=== PATIENT | male | born 1955 | race Caucasian/White ===

== ENCOUNTER 2019-07-25 03:38 | Observation (INO) ==
[2019-07-25 04:10] LABS: Basophils # 0.1 K/mm3 (0-0.2); Basophils % 0.3 % (0.1-2.0); Eosinophils # 0.2 K/mm3 (0.0-0.4); Eosinophils % 1.3 % (0.1-12.0); Hematocrit 44.2 % (42.0-52.0); Hemoglobin 13.8 g/dL (14.1-18.0); Lymphocytes # 3.6 K/mm3 (0.7-4.5); Lymphocytes % 20.1 % (10-50); Mean Corpuscular HGB Conc 31.2 g/dL (31.8-35.4); Mean Platelet Volume 7.2 fl (7.4-10.4); Monocytes # 0.8 K/mm3 (0.1-1.0); Monocytes % 4.4 % (1.7-9.3); Neutrophils # 13.1 K/mm3 (1.8-7.8); Neutrophils % 73.9 % (37.0-80.0); Platelet Count 323 K/mm3 (142-424); Red Blood Count 4.56 M/mm3 (4.60-6.20); Red Cell Distribution Width 14.4 % (11.5-17.5); White Blood Count 17.8 K/mm3 (4.8-10.8)
[2019-07-25 04:23] LABS: Albumin/Globulin Ratio 0.7 (1.1-1.8); Anion Gap 14.5 mEq/L (5-15); Bilirubin,Total 0.4 mg/dL (0.2-1.0); Calcium 8.7 mg/dL (8.5-10.1); Globulin 4.1 gm/dl (1.3-3.2); Total Protein,Serum 7.1 gm/dL (6.4-8.2)
[2019-07-25 04:25] LABS: Anisocytosis 1+; Lymphocytes % 20 % (10-50); Monocytes % 2 % (2-9); Neutrophils % 78 % (42-76); Total Cells Counted 100
--- NOTE | 2019-07-25 04:47 | Emergency Department Note ---
ED Disposition Clinical Impression: Acute exacerbation of chronic obstructive airways disease, Renal insufficiency, Severe sepsis, Obesity (BMI 30-39.9), Tobacco use, Elevated BP without diagnosis of hypertension Community acquired pneumonia Qualifiers: Laterality: unspecified laterality Qualified Code(s): J18.9 - Pneumonia, unspecified organism Disposition: Admitted As Inpatient Condition on Discharge: Serious Referrals: Provider,Referral, [Primary Care Provider] - - Critical Care Critical Care Time: No Attestation: On 07/25/19, the high probability of a clinically significant, sudden or life threatening deterioration of the following system(s) required my full and direct attention, intervention and personal management. The time I documented below is in addition to time spent performing reported procedures but includes the following listed in this critical care notation. Medical Decision Making - Medical Records Medical records reviewed: Yes: I reviewed the patient's medical records. - Ramirez Inquiry Pt receiving controlled substance: No Vital Signs: 07/25/19 03:39 07/25/19 04:04 07/25/19 04:05 Temperature 98.9 F Temperature Source Oral Pulse Rate 84 Pulse Rate [Right Brachial] 96 H Respiratory Rate 18 Blood Pressure [Right Arm] 194/132 H 198/112 H Blood Pressure Mean [Right Arm] 152 140 Blood Pressure Source [Right Arm] Automatic Cuff Manual Cuff/ Auscultation Blood Pressure Position [Right Arm] Sitting Sitting 02 Sat by Pulse Oximetry 94 L Oxygen Delivery Method Room Air 07/25/19 04:30 Temperature Temperature Source Pulse Rate Pulse Rate [Right Brachial] 94 H Respiratory Rate 16 Blood Pressure [Right Arm] 173/117 H Blood Pressure Mean [Right Arm] 135 Blood Pressure Source [Right Arm] Blood Pressure Position [Right Arm] 02 Sat by Pulse Oximetry 95 Oxygen Delivery Method - Lab Data Lab results reviewed: Yes: I reviewed the patient's lab results. Lab Results 07/25/19 03:57: WBC 17.8 H, RBC 4.56 L, Hgb 13.8 L, Hct 44.2, MCV 97.0 H, MCH 30.3, MCHC 31.2 L, RDW 14.4, Plt Count 323, MPV 7.2 L, Neut % (Auto) 73.9, Lymph % (Auto) 20.1, [place] % (Auto) 4.4, Eos % (Auto) 1.3, Baso % (Auto) 0.3, Neut # (Auto) 13.1 H, Lymph # (Auto) 3.6, [place] # (Auto) 0.8, Eos # (Auto) 0.2, Baso # (Auto) 0.1, Total Counted 100, Neutrophils % (Manual) 78 H, Lymphocytes % (Manual) 20, Monocytes % (Manual) 2, Platelet Estimate Normal, Anisocytosis 1+ 07/25/19 03:57: Sodium 142, Potassium 3.5, Chloride 103, Carbon Dioxide 28, Anio n Gap 14.5, BUN 30 H, Creatinine 2.03 H, Estimated Creat Clear 57, Estimated GFR 33 L, Est GFR ( Amer) 40 L, Glucose 106, Calcium 8.7, Total Bilirubin 0.4, AST 38 H, ALT 93 H, Alkaline Phosphatase 67, Troponin I 0.05, Total Protein 7.1, Albumin 3.0 L, Globulin 4.1 H, Albumin/Globulin Ratio 0.7 L 07/25/19 03:57: Lactate 0.9 07/25/19 03:59: Influenza Type A Ag Negative, Influenza Type B Ag Negative Result diagrams: 07/25/19 03:57 07/25/19 03:57 Orders (Tests/Meds): ED MEDICATIONS Discontinued Medications Generic Name Dose Route Start Last Admin Trade Name Freq PRN Reason Stop Dose Admin Albuterol/Ipratropium 3 ml 07/25/19 03:51 07/25/19 04:05 Duoneb 3ml Neb IH 07/25/19 03:52 3 ml ONCE ONE Administration Methylprednisolone Sodium Succinate 125 mg 07/25/19 03:51 07/25/19 04:00 Solu-Medrol 125mg/2ml Vial IV 07/25/19 03:52 125 mg ONCE ONE Administration ORDERS Category Date Time Status BNP [B-Type Natriuretic Peptide] Stat Lab 07/25/19 04:54 Ordered Blood Culture Stat Micro 07/25/19 03:55 Received - Radiology Data #1 Image(s): Chest Image Reviewed: Yes I reviewed the patient's radiology image Preliminary Findings: Abnormal (inflitrate ) - ECG Data Tracing #1 Arrhythmias present: PAC's Ischemic changes: non-specific ST-T wave changes - Physician Consults Physician Consulted: glen Reason -: Admission Resp/SOB HPI - General Chief Complaint: Shortness of Breath/Dyspnea Stated Complaint: SOA Time Seen by Provider: 07/25/19 03:50 Mode of Arrival: Ambulatory Source of Information: Patient, Medical Record Limitations: No Limitations Description of Symptoms (Recalled from ER Triage Doc. by RN): Reports SOB for over a week now, was given steriods and breathing tx by a nurse practictioner but states it is not helping and now he can't breathe. Reports yellow thick sputum production. - History of Present Illness progressive sob over the last week with prod cough and wheezing - had used pr edisone called in by friend - pt with hx of tob use MD Complaint: shortness of breath, cough Onset (ago): day(s) Severity: moderate Associated symptoms: denies other symptoms - Related Data Home oxygen amount: none Home Medications Medication Instructions Recorded Confirmed Albuterol Sulfate [Albuterol 2.5 mg IH Q4H PRN 07/25/19 07/25/19 0.083% 2.5mg/3mL neb] Budesonide/Formoterol Fumarate 2 puffs IH BID 07/25/19 07/25/19 [Symbicort 80-4.5 Mcg Inhaler] methylPREDNISolone [Medrol] 4 mg PO DIRECTED 07/25/19 07/25/19 Allergies Allergy/AdvReac Type Severity Reaction Status Date / Time No Known Allergies Allergy Verified 07/25/19 03:51 [place] History - Hepatitis A Screen Drug use history?: No High risk sexual behaviors?: No History of sexually transmitted infection?: No Currently employed?: No Childcare worker?: No Do you have indoor plumbing?: Yes Do you have electricity?: Yes Attestation statement:: This patient has been screened for Hepatitis A risk factors. I have reviewed the patient's past medical history: Yes Medical History: Denies:: Cancer, Diabetes Mellitus Type 1, Diabetes Mellitus Type 2, Home Oxygen, MRSA Amputation: No - Social History Smoking Status: Current every day smoker # Packs/Day (cigarettes): 1 Alcohol Intake: never Occupational Status: employed Housing: house ROS Obtained: Yes All systems reviewed & no additional complaints - Constitutional Constitutional: Denies fever(s) - Eyes Eyes: Denies change in vision - ENT Ears, Nose, Mouth, and Throat: Denies sore throat - Cardiovascular Cardiovascular: Denies chest pain, Reports dyspnea - Respiratory Respiratory: Yes as per HPI, Yes change in phlegm color, No coughing up blood - Gastrointestinal Gastrointestingal: Denies: abdominal pain - Genitourinary Male Genitourinary: Denies flank pain - Musculoskeletal Musculoskeletal: Denies joint pain, Denies joint swelling - Integumentary/Breasts Skin/Breast: Denies rash - Neurologic Neurologic: Denies seizure-like activity Physical Exam - General General appearance: alert, in no apparent distress, obese - Head Head exam: normocephalic - Eye Eye exam: Present: PERRL, EOMI. Absent: scleral icterus - ENT ENT exam: Present: mucous membranes dry - Neck Neck exam: Present: trachea midline - Respiratory Respiratory exam: Present: wheezes, accessory muscle use, prolonged expiratory phase. Absent: respiratory distress - Cardiovascular Cardiovascular exam: Present: regular rate, systolic murmur, +S4 - Abdominal Exam Abdominal exam: Present: soft - Extremities Exam Extremities exam: Absent: calf tenderness - Neurological Exam Neurological exam: Present: alert, oriented X3, CN II-XII intact - Psychiatric Psychiatric exam: Present: normal affect - Skin Skin exam: Absent: rash
[2019-07-25 06:12] LABS: Chol/HDL Ratio 3.2 (1-3.5); Thyroid Stimulating Hormone 1.5 uIU/ml (0.358-3.740)
--- NOTE | 2019-07-25 08:47 | History & Physical Report ---
*Admission Date: 07/25/19 <Sara Frausto - 07/25/19 08:55> *Chief complaint: SOA <Sara Frausto 07/25/19 08:55> *History of present illness: Mr. 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 He states he has had shortness of breath for over 2 weeks. He thought it was due to the hemp. He took some antibiotics that he had at home (he thinks it was amoxicillin). He also took some prednisone and a nurse practitioner friend of his gave him some Symbicort. He states everything helped temporarily but the shortness of air progressively got worse. By last night he was unable to talk or breathe and drove himself to the emergency room. He has had some thick yellow and brown sputum. He was evaluated in the ER and was found to have CHF with left upper lobe and right middle lobe pneumonia on a chest x-ray. There was also a 12 mm parenchymal opacity in the left midlung which could also be related to a pneumonia. His BNP was elevated at 1530. His white blood cell count was 17.8. His renal function was elevated. He had an echo done as well and the preliminary showed an EF of 35%. He was admitted and started on IV antibiotics, duo nebs, steroids, and he was given a dose of Lasix in the emergency room. He is feeling better this morning. He is requesting oxygen. <Sara Frausto - 07/25/19 08:55> [facility] History I have reviewed the patient's past medical history: Yes <Sara Frausto 07/25/19 08:55> Medical History: Reports:: Hypertension Denies:: Cancer, Diabetes Mellitus Type 1, Diabetes Mellitus Type 2, Home Oxygen, Internal Pacemaker, MRSA <Sara Frausto 07/25/19 08:55> *Have you ever received a pneumonia vaccine?: No <Sara Frausto 07/25/19 08:55> *Have you received a flu vaccine this season?: No <Sara Frausto 07/25/19 08:55> Other Surgeries: Yes: No Previous Surgery. No: Pacemaker <Sara Frausto 07/25/19 08:55> Amputation: No <JettSara 07/25/19 08:55> - *Social History Educational Level: Completed High School <Sara Frausto 07/25/19 08:55> Smoking Status: Current every day smoker <Sara Frausto 07/25/19 08:55> Tobacco Type: cigarettes <Sergio Fraustoa 07/25/19 08:55> # Packs/Day (cigarettes): 1 <Sara Frausto 07/25/19 08:55> Alcohol Intake: never <Sergio Fraustoa 07/25/19 08:55> *Occupational Status:: employed <Sara Frausto 07/25/19 08:55> Housing: house <Sara Frausto 07/25/19 08:55> *Travel in the last 8 weeks: None <Sara Frausto 07/25/19 08:55> Family Hx:: no Cancer, no Diabetes, no Hyperlipidemia, no Hypertension <Sara Frausto 07/25/19 08:55> Review of Systems - Constitutional Reports weakness, Denies chills, Denies fever(s) <Sara Frausto 07/25/19 08:55> - Eyes Denies blurry vision, Denies double vision <Sergio Fraustoa 07/25/19 08:55> - ENT Denies nasal congestion, Denies sore throat <Sergio Fraustoa 07/25/19 08:55> - *Cardiovascular Reports shortness of breath, Denies chest pain <Sergio Fraustoa 07/25/19 08:55> - *Respiratory Reports cough, Reports shortness of breath <JettSara 07/25/19 08:55> - *Gastrointestinal Denies abdominal pain, Denies loose stools, Denies nausea, Denies vomiting <Sara Frausto 07/25/19 08:55> - *Genitourinary Denies difficulty urinating, Denies painful urination <Sergio Fraustoa 07/25/19 08:55> - *Musculoskeletal Denies joint pain <Sara Frausto 07/25/19 08:55> - *Neurologic Denies headache(s), Denies seizure-like activity, Denies dizziness, Denies weakness <Sara Frausto - 07/25/19 08:55> Meds Home Medications Medication Instructions Recorded Confirmed Type Albuterol Sulfate [Albuterol 2.5 mg IH Q4H PRN 07/25/19 07/25/19 History 0.083% 2.5mg/3mL neb] Budesonide/Formoterol Fumarate 2 puffs IH BID 07/25/19 07/25/19 History [Symbicort 80-4.5 Mcg Inhaler] methylPREDNISolone [Medrol] 4 mg PO DIRECTED 07/25/19 07/25/19 History <Cris Hamm - 07/25/19 12:00> Allergies Allergy/AdvReac Type Severity Reaction Status Date / Time No Known Allergies Allergy Verified 07/25/19 03:51 <Cris Hamm - 07/25/19 12:00> Exam Vital signs and Labs for Last 24 Hours: Temp Pulse Resp BP Pulse Ox 97.3 F L 80 17 159/81 H 92 L 07/25/19 11:52 07/25/19 11:52 07/25/19 11:52 07/25/19 11:52 07/25/19 11:52 Laboratory Results - last 24 hr 07/25/19 03:57: WBC 17.8 H, RBC 4.56 L, Hgb 13.8 L, Hct 44.2, MCV 97.0 H, MCH 30.3, MCHC 31.2 L, RDW 14.4, Plt Count 323, MPV 7.2 L, Neut % (Auto) 73.9, Lymph % (Auto) 20.1, [place] % (Auto) 4.4, Eos % (Auto) 1.3, Baso % (Auto) 0.3, Neut # (Auto) 13.1 H, Lymph # (Auto) 3.6, [place] # (Auto) 0.8, Eos # (Auto) 0.2, Baso # (Auto) 0.1, Total Counted 100, Neutrophils % (Manual) 78 H, Lymphocytes % (Manual) 20, Monocytes % (Manual) 2, Platelet Estimate Normal, Anisocytosis 1+ 07/25/19 03:57: Sodium 142, Potassium 3.5, Chloride 103, Carbon Dioxide 28, Anion Gap 14.5, BUN 30 H, Creatinine 2.03 H, Estimated Creat Clear 57, Estimated GFR 33 L, Est GFR ( Amer) 40 L, Glucose 106, Calcium 8.7, Total Bilirubin 0.4, AST 38 H, ALT 93 H, Alkaline Phosphatase 67, Troponin I 0.05, Total Protein 7.1, Albumin 3.0 L, Globulin 4.1 H, Albumin/Globulin Ratio 0.7 L 07/25/19 03:57: Lactate 0.9 07/25/19 03:57: B-Natriuretic Peptide 1530 H 07/25/19 03:57: TSH 1.50, Thyroxine (T4) 9.0 07/25/19 03:57: Magnesium 2.0, Triglycerides 112, Cholesterol 175, LDL Cholesterol 99, VLDL Cholesterol 22, HDL Cholesterol 54, Cholesterol/HDL Ratio 3.2 07/25/19 03:59: Influenza Type A Ag Negative, Influenza Type B Ag Negative 07/25/19 08:25: Troponin I 0.04 07/25/19 11:15: Troponin I 0.03 <Cris Hamm - 07/25/19 12:00> Temp Pulse Resp BP Pulse Ox 97.9 F 97 H 16 180/126 H 95 07/25/19 06:00 07/25/19 06:35 07/25/19 06:00 07/25/19 06:00 07/25/19 06:34 Laboratory Results - last 24 hr 07/25/19 03:57: WBC 17.8 H, RBC 4.56 L, Hgb 13.8 L, Hct 44.2, MCV 97.0 H, MCH 30.3, MCHC 31.2 L, RDW 14.4, Plt Count 323, MPV 7.2 L, Neut % (Auto) 73.9, Lymph % (Auto) 20.1, [place] % (Auto) 4.4, Eos % (Auto) 1.3, Baso % (Auto) 0.3, Neut # (Auto) 13.1 H, Lymph # (Auto) 3.6, [place] # (Auto) 0.8, Eos # (Auto) 0.2, Baso # (Auto) 0.1, Total Counted 100, Neutrophils % (Manual) 78 H, Lymphocytes % (Manual) 20, Monocytes % (Manual) 2, Platelet Estimate Normal, Anisocytosis 1+ 07/25/19 03:57: Sodium 142, Potassium 3.5, Chloride 103, Carbon Dioxide 28, Anion Gap 14.5, BUN 30 H, Creatinine 2.03 H, Estimated Creat Clear 57, Estimated GFR 33 L, Est GFR ( Amer) 40 L, Glucose 106, Calcium 8.7, Total Bilirubin 0.4, AST 38 H, ALT 93 H, Alkaline Phosphatase 67, Troponin I 0.05, Total Protein 7.1, Albumin 3.0 L, Globulin 4.1 H, Albumin/Globulin Ratio 0.7 L 07/25/19 03:57: Lactate 0.9 07/25/19 03:57: B-Natriuretic Peptide 1530 H 07/25/19 03:57: TSH 1.50, Thyroxine (T4) 9.0 07/25/19 03:57: Magnesium 2.0, Triglycerides 112, Cholesterol 175, LDL Cholesterol 99, VLDL Cholesterol 22, HDL Cholesterol 54, Cholesterol/HDL Ratio 3.2 07/25/19 03:59: Influenza Type A Ag Negative, Influenza Type B Ag Negative <Sara Frausto - 07/25/19 08:55> I & O for Last 24 hours: Intake & Output 07/22/19 07/23/19 07/24/19 07/25/19 11:59 11:59 11:59 11:59 Intake Total 510 / 510 Output Total 550 / 550 Balance -40 / -40 Weight 249 lb 1.993 oz <Cris Hamm - 07/25/19 12:00> Intake & Output 07/22/19 07/23/19 07/24/19 07/25/19 11:59 11:59 11:59 11:59 Intake Total 150 / 150 Output Total 550 / 550 Balance -400 / -400 Weight 249 lb 2 oz <Sara Frausto - 07/25/19 08:55> - Constitutional no acute distress <Sara Frausto - 07/25/19 08:55> - *Routine HEENT Exam Head: Present: normocephalic <Sara Frausto 07/25/19 08:55> Eye: Present: EOMI, PERRL <Sara Frausto - 07/25/19 08:55> ENT: Present: mucous membranes dry <Sara Frausto - 07/25/19 08:55> - *Routine Neck Exam Present: supple. Absent: lymphadenopathy <Sara Frausto 07/25/19 08:55> - *Routine Respiratory Exam Present: decreased breath sounds, CTA bilaterally <Sara Frausto 07/25/19 08:55> - *Routine Cardiovascular Exam Present: RRR [facility] 08:55> - *Routine Abdominal Exam Present: soft, normoactive bowel sounds. Absent: tenderness <Sara Frausto 07/25/19 08:55> - *Routine Extremities Exam Present: edema (1+ pretibial edema bilaterally). Absent: cyanosis, clubbing <Sara Frausto 07/25/19 08:55> - *Routine Skin Exam Present: warm. Absent: rash <Sara Frausto 07/25/19 08:55> - *Routine Neurological Exam Present: alert, oriented X3 <Sara Frausto 07/25/19 08:55> H&P: Result - Impressions CXR - CHF with left upper lobe and right middle lobe pneumonia. 12 mm parenchymal opacity is present in the left mid lung which could also be related to pneumonia. Recommend following till clear. Preliminary echo - EF 35% <Sara Frausto 07/25/19 08:55> Assessment and Plan (1) Acute exacerbation of chronic obstructive airways disease Current visit: Yes Status: Acute Category: Medical Code(s): J44.1 - Chronic obstructive pulmonary disease with (acute) exacerbation (2) Community acquired pneumonia Current visit: Yes Status: Acute Qualifiers: Laterality: unspecified laterality Qualified Code(s): J18.9 - Pneumonia, unspecified organism Category: Medical Code(s): J18.9 - Pneumonia, unspecified organism (3) Obesity (BMI 30-39.9) Current visit: Yes Status: Chronic Category: Medical Code(s): E66.9 - Obesity, unspecified (4) Renal insufficiency Current visit: Yes Status: Acute Category: Medical Code(s): N28.9 - Disorder of kidney and ureter, unspecified (5) Tobacco use Current visit: Yes Status: Chronic Category: Medical Code(s): Z72.0 - Tobacco use (6) CHF (congestive heart failure) Current visit: Yes Status: Acute Category: Medical Code(s): I50.9 - Heart failure, unspecified (7) Hypertension Current visit: Yes Status: Acute Category: Medical Code(s): I10 - Essential (primary) hypertension <Sara Frausto - 07/25/19 08:38> (1) Acute exacerbation of chronic obstructive airways disease Current visit: Yes Status: Acute Category: Medical Code(s): J44.1 - Chronic obstructive pulmonary disease with (acute) exacerbation (2) Community acquired pneumonia Current visit: Yes Status: Acute Qualifiers: Laterality: unspecified laterality Qualified Code(s): J18.9 - Pneumonia, unspecified organism Category: Medical Code(s): J18.9 - Pneumonia, unspecified organism (3) Obesity (BMI 30-39.9) Current visit: Yes Status: Chronic Category: Medical Code(s): E66.9 - Obesity, unspecified (4) Renal insufficiency Current visit: Yes Status: Acute Category: Medical Code(s): N28.9 - Disorder of kidney and ureter, unspecified (5) Tobacco use Current visit: Yes Status: Chronic Category: Medical Code(s): Z72.0 - Tobacco use (6) CHF (congestive heart failure) Current visit: Yes Status: Acute Category: Medical Code(s): I50.9 - Heart failure, unspecified (7) Hypertension Current visit: Yes Status: Acute Category: Medical Code(s): I10 - Essential (primary) hypertension (8) Cardiomyopathy Current visit: Yes Status: Acute Category: Medical Code(s): I42.9 - Cardiomyopathy, unspecified (9) Abnormal EKG Current visit: Yes Status: Acute Category: Medical Code(s): R94.31 - Abnormal electrocardiogram [ECG] [EKG] <Cris Hamm - 07/25/19 12:00> - Assessment and plan all Dx Assessment and Plan for all problems:: possible dc today and have BP under control before cardiac workup, which is necessary for him. <Cris Hamm - 07/25/19 12:00> We will continue IV antibiotics, steroids, and nebs. The patient was given a dose of Lasix in the emergency room and does feel better this morning. Cardiology has been consulted. Will await blood and sputum cultures. <Sara Frausto - 07/25/19 08:55>
--- NOTE | 2019-07-25 09:06 | Pharmacy Consult Notes ---
[facility] Pharmacy VTE Monitoring - Patient Demographics Admission date: 07/24/19 Report Date: 07/25/19 Time: 09:06 Allergies/Adverse Reactions: Patient Allergies No Known Allergies Allergy (Verified 07/25/19 03:51) Height: 1.75 m Weight: 113.001 kg Patient Problems: Current Active Problems Community acquired pneumonia (Acute) Acute exacerbation of chronic obstructive airways disease (Acute) Renal insufficiency (Acute) Severe sepsis (Acute) Obesity (BMI 30-39.9) (Chronic) Tobacco use (Chronic) Elevated BP without diagnosis of hypertension (Acute) CHF (congestive heart failure) (Acute) Hypertension (Acute) - VTE Risk Labs: VTE Related Lab Results Hgb 13.8 g/dL (14.1-18.0) L 07/25/19 03:57 Hct 44.2 % (42.0-52.0) 07/25/19 03:57 Plt Count 323 K/mm3 (142-424) 07/25/19 03:57 BUN 30 mg/dL (7-18) H 07/25/19 03:57 Creatinine 2.03 mg/dL (0.70-1.30) H 07/25/19 03:57 Estimated Creat Clear 57 mL/min (50-200) 07/25/19 03:57 Was VTE Risk Assessment Performed: Yes VTE Score: 2 VTE Risk Level: Low Risk Clinical Trial Participant: No - Prophylaxis VTE Prophylaxis Ordered?: Yes Types of VTE Prophylaxis: TEDS Knee High
--- NOTE | 2019-07-25 10:24 | Consult Report ---
History of Present Illness Consult date: 07/25/19 Requesting physician: Cris Hamm Consult reason: congestive heart failure Chief complaint: SOA Additional Medical History:: 1. Long-standing untreated hypertension A. Congestive heart failure, 07/2019 B. Echocardiogram, 07/2019, ejection fraction 35% 2. Tobacco use 3. History of rotator cuff repair 4. CKD, stage 3b with Cr 2.03 and GFR 33, 07/2019 5. Obesity 6. Abnormal EKG with LAFB with NSSTTW abnormalities History of present illness: Mr. Dick is a 63-year-old male with a history of tobacco use who moved here from [place] and is a hemp former. He states he has had shortness of breath for over 2 weeks. He thought it was due to the hemp. He took some antibiotics that he had at home (he thinks it was amoxicillin). He also took some prednison e and a nurse practitioner friend of his gave him some Symbicort. He states everything helped temporarily but the shortness of air progressively got worse. By last night he was unable to talk or breathe and drove himself to the emergency room. He has had some thick yellow and brown sputum. He was evaluated in the ER and was found to have CHF with left upper lobe and right middle lobe pneumonia on a chest x-ray. There was also a 12 mm parenchymal opacity in the left midlung which could also be related to a pneumonia. His BNP was elevated at 1530. His white blood cell count was 17.8. His renal function was elevated. He had an echo done as well and the preliminary showed an EF of 35%. He was admitted and started on IV antibiotics, duo nebs, steroids, and he was given a dose of Lasix in the emergency room. He is feeling better this morning. He is requesting oxygen. The above per Sara Frausto PA-C Cardiology consulted for abnormal echocardiogram and congestive heart failure. Patient relates a lifelong history of hypertension that has been untreated. Tobacco use as noted above most of his life. He has never been told he was a diabetic or had hyperlipidemia but he has noted some "neuropathy" in the bottoms of his feet and suspects that he may have diabetes. Shortness of breath last evening responded well to IV Lasix. Long discussion regarding the diagnosis of congestive heart failure and possible etiologies with the patient. He states he is willing to take medications and to do whatever it takes to get better. EKG is sinus with brief (4 beats of PAT), LAFB and PRWP anteriorly. [facility] History Medical History: Reports:: Hypertension Denies:: Cancer, Diabetes Mellitus Type 1, Diabetes Mellitus Type 2, Home Oxygen, Internal Pacemaker, MRSA *Have you ever received a pneumonia vaccine?: No *Have you received a flu vaccine this season?: No Other Surgeries: Yes: No Previous Surgery. No: Pacemaker Amputation: No - *Social History Educational Level: Completed High School Smoking Status: Current every day smoker Tobacco Type: cigarettes # Packs/Day (cigarettes): 1 Alcohol Intake: never *Occupational Status:: employed Housing: house *Travel in the last 8 weeks: None Family Hx:: no Cancer, no Diabetes, no Hyperlipidemia, no Hypertension Meds Home Medications Medication Instructions Recorded Confirmed Type Albuterol Sulfate [Albuterol 2.5 mg IH Q4H PRN 07/25/19 07/25/19 History 0.083% 2.5mg/3mL neb] Budesonide/Formoterol Fumarate 2 puffs IH BID 07/25/19 07/25/19 History [Symbicort 80-4.5 Mcg Inhaler] methylPREDNISolone [Medrol] 4 mg PO DIRECTED 07/25/19 07/25/19 History Allergies Allergy/AdvReac Type Severity Reaction Status Date / Time No Known Allergies Allergy Verified 07/25/19 03:51 Review of Systems - *Cardiovascular Reports shortness of breath, Reports shortness of breath with activity, Denies chest pain - *Respiratory Reports chest congestion, Reports cough, Reports shortness of breath, Reports shortness of breath with activity - *Gastrointestinal Denies abdominal pain, Denies nausea, Denies vomiting - *Genitourinary Denies blood in urine - *Musculoskeletal Denies joint pain, Denies back pain - *Neurologic Denies headache(s), Denies seizure-like activity, Denies dizziness, Denies weakness Exam Vital signs and Labs for Last 24 Hours: Temp Pulse Resp BP Pulse Ox 98.3 F 94 H 18 200/124 H 92 L 07/25/19 08:00 07/25/19 08:00 07/25/19 08:00 07/25/19 08:00 07/25/19 08:00 Laboratory Results - last 24 hr 07/25/19 03:57: WBC 17.8 H, RBC 4.56 L, Hgb 13.8 L, Hct 44.2, MCV 97.0 H, MCH 30.3, MCHC 31.2 L, RDW 14.4, Plt Count 323, MPV 7.2 L, Neut % (Auto) 73.9, Lymph % (Auto) 20.1, Cochran % (Auto) 4.4, Eos % (Auto) 1.3, Baso % (Auto) 0.3, Neut # (Auto) 13.1 H, Lymph # (Auto) 3.6, Cochran # (Auto) 0.8, Eos # (Auto) 0.2, Baso # (Auto) 0.1, Total Counted 100, Neutrophils % (Manual) 78 H, Lymphocytes % (Manual) 20, Monocytes % (Manual) 2, Platelet Estimate Normal, Anisocytosis 1+ 07/25/19 03:57: Sodium 142, Potassium 3.5, Chloride 103, Carbon Dioxide 28, Anion Gap 14.5, BUN 30 H, Creatinine 2.03 H, Estimated Creat Clear 57, Estimated GFR 33 L, Est GFR ( Amer) 40 L, Glucose 106, Calcium 8.7, Total Bilirubin 0.4, AST 38 H, ALT 93 H, Alkaline Phosphatase 67, Troponin I 0.05, Total Protein 7.1, Albumin 3.0 L, Globulin 4.1 H, Albumin/Globulin Ratio 0.7 L 07/25/19 03:57: Lactate 0.9 07/25/19 03:57: B-Natriuretic Peptide 1530 H 07/25/19 03:57: TSH 1.50, Thyroxine (T4) 9.0 07/25/19 03:57: Magnesium 2.0, Triglycerides 112, Cholesterol 175, LDL Cholesterol 99, VLDL Cholesterol 22, HDL Cholesterol 54, Cholesterol/HDL Ratio 3.2 07/25/19 03:59: Influenza Type A Ag Negative, Influenza Type B Ag Negative 07/25/19 08:25: Troponin I 0.04 I & O for Last 24 hours: Intake & Output 07/22/19 07/23/19 07/24/19 07/25/19 11:59 11:59 11:59 11:59 Intake Total 510 / 510 Output Total 550 / 550 Balance -40 / -40 Weight 249 lb 2 oz - *Routine HEENT Exam Head: Present: normocephalic Eye: Present: EOMI, PERRL ENT: Present: mucous membranes moist - *Routine Neck Exam Present: supple. Absent: JVD, carotid bruit - *Routine Respiratory Exam Present: decreased breath sounds, rales. Absent: accessory muscle use, rhonchi, wheezes - *Routine Cardiovascular Exam Present: RRR. Absent: murmur, gallop, rubs - *Routine Abdominal Exam Present: soft. Absent: tenderness, distended, guarding - *Routine Extremities Exam Present: edema. Absent: calf tenderness - *Routine Neurological Exam Present: alert, oriented X3, moving all extremities Assessment and Plan (1) Acute exacerbation of chronic obstructive airways disease Current visit: Yes Status: Acute Category: Medical Code(s): J44.1 - Chronic obstructive pulmonary disease with (acute) exacerbation (2) Community acquired pneumonia Current visit: Yes Status: Acute Qualifiers: Laterality: unspecified laterality Qualified Code(s): J18.9 - Pneumonia, unspecified organism Category: Medical Code(s): J18.9 - Pneumonia, unspecified organism (3) Obesity (BMI 30-39.9) Current visit: Yes Status: Chronic Category: Medical Code(s): E66.9 - Obesity, unspecified (4) Renal insufficiency Current visit: Yes Status: Acute Category: Medical Code(s): N28.9 - Disorder of kidney and ureter, unspecified (5) Tobacco use Current visit: Yes Status: Chronic Category: Medical Code(s): Z72.0 - Tobacco use (6) CHF (congestive heart failure) Current visit: Yes Status: Acute Category: Medical Code(s): I50.9 - Heart failure, unspecified (7) Hypertension Current visit: Yes Status: Acute Category: Medical Code(s): I10 - Essential (primary) hypertension (8) Cardiomyopathy Current visit: Yes Status: Acute Category: Medical Code(s): I42.9 - Cardiomyopathy, unspecified (9) Abnormal EKG Current visit: Yes Status: Acute Category: Medical Code(s): R94.31 - Abnormal electrocardiogram [ECG] [EKG] - Assessment and plan all Dx Assessment and Plan for all problems:: 1. Mixed systolic and diastolic CHF, start lasix and aldactone. Get BMP next week if discharged later today. 2. Newly diagnosed Cardiomyopathy, likely secondary to long standing, untreated HTN. Will add isordil and hydralazine for BP and consider other meds as needed. 3. Tobacco use, cessation recommended. 4. Questionable diabetes, workup per PCP 5. CKD, stage 3b with Cr 2.03 and GFR [address] Locke and Dr. BARNES, with troponins WNL and EKG without acute ST segment changes, would recommend getting BP under control prior to further CAD workup.
[2019-07-25 12:39] LABS: Chol/HDL Ratio 3.2 (1-3.5)
--- NOTE | 2019-07-25 13:24 | Cardiology Report ---
APPROVED REPORT EXAM: Comprehensive 2D, Doppler, and color-flow Echocardiogram [employer]line Flight Attendant: Svaannah Morel RDCS Ht: 5 ft 9 in Wt: 240lbs BSA: 2.23 BP: 150/91 mmHg Indications: CHF,MURMUR,HTN,COPD,PNEUMONIA 2D Dimensions LVOT 2.21 cm (M/F) 1.5-2.5 M-Mode Dimensions RVDd 3.30 cm (0.9-2.6)LVDd 6.56 cm (3.5-5.7) LVDs 5.62 cm (3.5-5.7)IVSd 1.04 cm (0.6-1.1) PWd 1.78 cm (0.6-1.1)EF (Teich) 29.80% FS 14.30% EDV (Teich) 220.50 mL ESV (Teich) 154.90 mL LV Diastology E/A Ratio 1.88 Aortic Valve AO VTI 0.00 (18-25 cm) Mitral Valve MV A Velocity 41.00 (40-130 cm/s) Left Ventricle Left atrium is moderately enlarged, left ventricle is mildly dilated, there is mild concentric left ventricular hypertrophy, visually estimated ejection fraction 30%, left ventricle is globally hypokinetic. Right Ventricle Right atrium and right ventricular mildly enlarged with normal contractility. Aortic Valve Aortic valve is minimally thickened and fibrosed, there is no aortic stenosis or aortic insufficiency. Mitral Valve Mitral valve leaflets are minimally thickened, there is no mitral stenosis, there is mild mitral regurgitation. Tricuspid Valve Tricuspid valve is grossly normal, there is mild tricuspid regurgitation. Tricuspid regurgitation jet velocity is inadequate for calculation of the right ventricular systolic pressure. Pulmonic Valve Pulmonic valve is poorly visualized. Great Vessels Aortic root is normal size. Pericardium Small pericardial effusion noted. Conclusion 1. Biatrial enlargement, dilated left ventricle, severely reduced left ventricular systolic function, visually estimated ejection fraction 30%, left ventricle is globally hypokinetic. Grade 2 diastolic dysfunction seen with tissue Doppler evidence of raise left atrial pressure. Inferior vena cava is dilated without significant inspiratory collapse. 2. Mildly enlarged right ventricle with normal contractility. 3. Mild mitral and tricuspid regurgitation 4. Small pericardial effusion noted. Electronically signed by : Yehuda Sanchez, 07/25/2019 13:24:07
--- NOTE | 2019-07-26 07:27 | Electrocardiograph Report ---
APPROVED REPORT Exam: Resting ECG HR:98 bpm ECG Measurements Heart Rate 98 AXES OK 140 P 41 QRSd 114 QRS -51 QT 378 T73 QTc 482 <Conclusion> Sinus rhythm with premature atrial complexes Possible Left atrial enlargement Left anterior fascicular block Nonspecific ST abnormality Prolonged QT Abnormal ECG Electronically signed by : Danny Galicia, 07/26/2019 07:26:39
--- NOTE | 2019-07-28 21:31 | Discharge Summary ---
General - General Admission date:: 07/25/19 Discharge date: 07/25/19 HPI HPI: Mr. Dick is a 63-year-old male with a history of tobacco use who moved here from [place] and is a hemp former. He states he has had shortness of breath for over 2 weeks. He thought it was due to the hemp. He took some antibiotics that he had at home (he thinks it was amoxicillin). He also took some prednisone and a nurse practitioner friend of his gave him some Symbicort. He states everything helped temporarily but the shortness of air progressively got worse. By last night he was unable to talk or breathe and drove himself to the emergency room. He has had some thick yellow and brown sputum. He was evaluated in the ER and was found to have CHF with left upper lobe and right middle lobe pneumonia on a chest x-ray. There was also a 12 mm parenchymal opac ity in the left midlung which could also be related to a pneumonia. His BNP was elevated at 1530. His white blood cell count was 17.8. His renal function was elevated. He had an echo done as well and the preliminary showed an EF of 35%. He was admitted and started on IV antibiotics, duo nebs, steroids, and he was given a dose of Lasix in the emergency room. He is feeling better this morning. He is requesting oxygen. Hospital Course Hospital Course: The patient's EKG showed possible left atrial enlargement, a prolonged QT, left anterior fascicular block, and nonspecific ST abnormalities. His troponins were normal. His chest x-ray showed CHF with left upper lobe and right middle lobe pneumonia. There was a 12 mm parenchymal opacity in the left midlung which also could be a pneumonia. The patient was admitted and started on IV antibiotics, duo nebs, steroids and some IV Lasix. He did feel better by the next day. An echo was ordered and the preliminary showed an EF of 35%. Cardiology was therefore consulted. The official echo showed an EF of 30% with severely reduced left ventricular systolic function, dilated left ventricle, and biatrial enlargement. There was grade 2 diastolic dysfunction as well. The patient's blood pressure was elevated and a small pericardial effusion was noted. He was seen in consultation by cardiology. The patient had a lifelong history of hypertension that has been untreated and tobacco use most of his life. His shortness of breath did improve with the IV Lasix. Cardiology had a long discu ssion regarding the patient's diagnostic of congestive heart failure and possible etiologies. The patient stated he was willing to take medications and do whatever it took to get better. He was started on Lasix and Aldactone. He was diagnosed with cardiomyopathy likely secondary to long-standing untreated hypertension. Isordil and hydralazine were ordered for blood pressure. Tobacco cessation was recommended. Cardiology wanted his blood pressure under control before any cardiac intervention was performed. The patient also had renal insufficiency. His blood culture showed no growth. He was discharged home on Keflex and prednisone for his pneumonia as well as hydralazine, Lasix, metoprolol, and isosorbide dinitrate for his blood pressure and CHF. He was also sent home with a nicotine patch for his tobacco use. He will follow-up with both Dr. Locke as well as with Dr. Hamm. Objective Vital signs: Temp Pulse Resp BP Pulse Ox 97.3 F L 80 17 159/81 H 92 L 07/25/19 11:52 07/25/19 12:01 07/25/19 11:52 07/25/19 11:52 07/25/19 11:52 Narrative: - Constitutional no acute distress - *Routine HEENT Exam Head: Present: normocephalic Eye: Present: EOMI, PERRL ENT: Present: mucous membranes dry - *Routine Neck Exam Present: supple. Absent: lymphadenopathy - *Routine Respiratory Exam Present: decreased breath sounds, CTA bilaterally - *Routine Cardiovascular Exam Present: RRR - *Routine Abdominal Exam Present: soft, normoactive bowel sounds. Absent: tenderness - *Routine Extremities Exam Present: edema (1+ pretibial edema bilaterally). Absent: cyanosis, clubbing - *Routine Skin Exam Present: warm. Absent: rash - *Routine Neurological Exam Present: alert, oriented X3 Results Labs on day of discharge: Preliminary micro results at discharge 07/25/19 03:55 Blood Culture - Preliminary Blood NO GROWTH AFTER 48 HOURS 07/25/19 03:55 Blood Culture - Preliminary Blood NO GROWTH AFTER 48 HOURS DS: Diagnosis - Discharge Diagnosis (1) Acute exacerbation of chronic obstructive airways disease Status: Acute (2) Community acquired pneumonia Status: Acute (3) Obesity (BMI 30-39.9) Status: Chronic (4) Renal insufficiency Status: Acute (5) Tobacco use Status: Chronic (6) CHF (congestive heart failure) Status: Acute (7) Hypertension Status: Acute (8) Cardiomyopathy Status: Acute (9) Abnormal EKG Status: Acute Discharge Plan - Patient Discharge Instructions ACTIVITY: Continue current activity, No heavy lifting DIET: cardiac Patient Instructions: Pneumonia-Adult, Chronic Obstructive Pulmonary Disease, Sepsis, Pneumococcal Vaccine, DI for Chronic Obstructive Pulmonary Disease, DI for Pneumonia -- Adult, DI for Sepsis -- Adult - Follow up Plan Follow up with: Grzegorz Locke MD [Staff Physician] - 07/28/19 9:30 am Cris Hamm MD [Staff Physician] - 07/31/19 10:15 am Disposition: Home, Self-Group Home Medications: Home Medications Medication Instructions Recorded Confirmed Type Albuterol Sulfate [Albuterol 2.5 mg IH Q4H PRN 07/25/19 07/25/19 History 0.083% 2.5mg/3mL neb] Budesonide/Formoterol Fumarate 2 puffs IH BID 07/25/19 07/25/19 History [Symbicort 80-4.5 Mcg Inhaler] Furosemide [Lasix 40mg tablet] 40 mg PO DAILY 30 Days #30 tab 07/25/19 Rx Hydralazine HCl [Hydralazine HCl 25 mg PO TID 30 Days #90 tab 07/25/19 Rx 25mg Tablet] Isosorbide Dinitrate [Isordil 10mg 10 mg PO TID 30 Days #90 tab 07/25/19 Rx tablet] Metoprolol Succinate [Toprol XL 25 mg PO DAILY 30 Days #30 07/25/19 Rx 25mg tablet] tab.er.24h Nicotine [Nicoderm 21mg/24hr 21 mg TD DAILYP PRN 30 Days #30 07/25/19 Rx patch] patch.td24 cephALEXin [Keflex 500mg Cap] 500 mg PO TID 7 Days #21 cap 07/25/19 Rx predniSONE [Deltasone 20mg 40 mg PO DAILY 4 Days #4 tab 07/25/19 Rx tablet] Prescriptions/Medication Reconciliation: New predniSONE [Deltasone 20mg tablet] 40 mg PO DAILY 4 Days #4 tab Hydralazine HCl [Hydralazine HCl 25mg Tablet] 25 mg PO TID 30 Days #90 tab cephALEXin [Keflex 500mg Cap] 500 mg PO TID 7 Days #21 cap Furosemide [Lasix 40mg tablet] 40 mg PO DAILY 30 Days #30 tab Nicotine [Nicoderm 21mg/24hr patch] 21 mg TD DAILYP PRN 30 Days #30 patch.td24 PRN Reason: Nicotine Cravings Metoprolol Succinate [Toprol XL 25mg tablet] 25 mg PO DAILY 30 Days #30 tab.er.24h Isosorbide Dinitrate [Isordil 10mg tablet] 10 mg PO TID 30 Days #90 tab Continued Albuterol Sulfate [Albuterol 0.083% 2.5mg/3mL neb] 2.5 mg IH Q4H PRN PRN Reason: breathing Budesonide/Formoterol Fumarate [Symbicort 80-4.5 Mcg Inhaler] 2 puffs IH BID Discontinued methylPREDNISolone [Medrol] 4 mg PO DIRECTED - Problem Reconciliation Problems Reviewed?: Yes
== END 2019-07-25 15:10 | disposition home or self-care (01) ==
LOC: ER 03:38 → 2ND 03:38
PROVIDERS: ADMIT Emergency Medicine; ATTEND Emergency Medicine
DX: J18.9 Pneumonia, unspecified organism; E66.9 Obesity, unspecified; R94.31 Abnormal electrocardiogram [ECG] [EKG]; I42.9 Cardiomyopathy, unspecified; J44.1 Chronic obstructive pulmonary disease with (acute) exacerbation; N28.9 Disorder of kidney and ureter, unspecified; I50.9 Heart failure, unspecified; Z68.36 Body mass index [BMI] 36.0-36.9, adult; Z79.899 Other long term (current) drug therapy; Z72.0 Tobacco use; I10 Essential (primary) hypertension
CPT/HCPCS: 36415; 71020; 71046; 80053; 80061; 83036; 83605; 83735; 83880; 84436; 84443; 84484; 85007; 85025; 87040; 87275; 87276; 93005; 93306; 94640; 96365; 96367; 96375; 99285; G0378; J0456